=== PATIENT | male | born 1995 | race Two or more races ===

== ENCOUNTER 2025-04-04 01:38 | Emergency (ER) | payer MEDICAID, OTHER ==
[~2025-04-04] VITALS: Ht 172.7 cm; Wt 63.6 kg
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
[2025-04-04] MEDS ORDERED: [UNRECOGNIZED DRUG - CODE] EX (03:01)
[2025-04-04] MEDS ORDERED: CREA1CRE EX (03:01)
[2025-04-04 06:40] VITALS: BP 109/74; PULSE 100; RESP 16; TEMP 98.7; O2SAT 99
== END 2025-04-04 06:44 | disposition home or self-care (01) ==
LOC: ER 01:38
DX: L89.159 Pressure ulcer of sacral region, unspecified stage (principal); G82.20 Paraplegia, unspecified; Z79.899 Other long term (current) drug therapy; Z98.890 Other specified postprocedural states